=== PATIENT | male | born 1965 | race Asian ===

== ENCOUNTER 2019-09-15 19:12 | Emergency (ER) | payer OTHER ==
[~2019-09-15] VITALS: Ht 167.6 cm; Wt 68.0 kg
[2019-09-15 19:20] VITALS: BP 136/86; Ht 167.6 cm; Wt 68.0 kg
== END 2019-09-15 20:52 | disposition home or self-care (01) ==
LOC: ED 19:12
DX: L50.9 Urticaria, unspecified (principal)